=== PATIENT | female | born 1985 | race Hispanic/Latino ===

== ENCOUNTER 2019-09-18 09:37 | Emergency (ER) | payer OTHER ==
[2019-09-18] MEDS ORDERED: NA CHLORIDE 0.9% 1,000 ML ONE (09:59)
[2019-09-18 10:29] LABS: Absolute Lymphocytes (CBC) 1.9 K/uL (0.7-4.9); Basophils % 0.7 % (0-1.3); Hematocrit 27.6 % (36.0-45.0); Lymphocytes % 18.7 % (15.3-44.8); RBC Red Blood Cell Count 4.44 M/uL (3.86-4.86)
[2019-09-18] MEDS ORDERED: ONDANSETRON 4 MG/2 ML VIAL ONE (10:33)
[2019-09-18 10:47] LABS: ALT/SGPT 17 U/L (12-78); AST/SGOT 11 U/L (15-37); Albumin 3.4 g/dL (3.4-5.0); Alkaline Phosphatase 91 U/L (45-117); BUN Blood Urea Nitrogen 12 mg/dL (7-18); Bicarbonate 26 mmol/L (21-32); Bilirubin Direct < 0.1 mg/dL (0-0.2); Bilirubin Total 0.2 mg/dL (0.2-1.0); Glucose Level 91 mg/dL (74-106); Potassium 3.6 mmol/L (3.5-5.1); Protein, Total 7.1 g/dL (6.4-8.2); Sodium Level 141 mmol/L (136-145); Troponin (Emerg Dept Use Only) < 0.02 ng/mL (0.0-0.045)
[2019-09-18 10:47] LABS: Urine Blood NEGATIVE (NEG); Urine Glucose NEGATIVE (NEG); Urine Protein NEGATIVE (NEG)
--- NOTE | 2019-09-18 11:25 | RAD REPORT ---
EXAM DESCRIPTION: RAD - Chest Single View - 09/18/2019 10:21 am CLINICAL HISTORY: Chest pain;Cough Chest pain. COMPARISON: No comparisons FINDINGS: Portable technique limits examination quality. The lungs are grossly clear. The heart is normal in size. No displaced fractures. IMPRESSION: No acute intrathoracic process suspected.
--- NOTE | 2019-09-18 13:27 | ER ---
Nurse's Notes [facility] Name: Georgia Sheridan Age: 34 yrs Sex: Female : 1985 Arrival Date: 09/18/2019 Time: 09:40 Bed 19 Private MD: Diagnosis: Acute upper respiratory infection, unspecified;Vomiting;Chest pain, unspecified;Anemia, unspecified Presentation: 09/17 09:40 Chief complaint: EMS states: NAUSEA AND VOMITING AT WORK WITH CHEST PAIN. Coronavirus bp screen: Proceed with normal triage. Patient reports a cough. Patient denies shortness of breath or difficulty breathing. Patient denies measured and/or subjective temperature greater than 100.4F prior to today's visit. Ebola Screen: No symptoms or risks identified at this time. Initial Sepsis Screen: Does the patient meet any 2 criteria? No. Patient's initial sepsis screen is negative. Does the patient have a suspected source of infection? No. Patient's initial sepsis screen is negative. Risk Assessment: Do you want to hurt yourself or someone else? Patient reports no desire to harm self or others. Onset of symptoms was September 18, 2019. Care prior to arrival: Medication(s) given: zofran 4 mg, IV initiated. 20 GA, in the right antecubital area. 09:40 Method Of Arrival: EMS: [place] [facility] bp 09:40 Acuity: DENNIS 3 bp Triage Assessment: 09:42 General: Appears in no apparent distress. uncomfortable, obese, Behavior is calm, bp cooperative, appropriate for age. Pain: Complains of pain in chest Quality of pain is described as squeezing. EENT: No deficits noted. Neuro: No deficits noted. Cardiovascular: Rhythm is sinus rhythm. Respiratory: Reports cough that is Airway is patent Respiratory effort is even, unlabored. GI: Reports nausea, vomiting. : No signs and/or symptoms were reported regarding the genitourinary system. Derm: No deficits noted. Musculoskeletal: No deficits noted. Historical: - Allergies: 09:42 No Known Allergies; bp - Home Meds: :42 None [Active]; bp - PMHx: 09:42 None; bp - Immunization history:: Adult Immunizations up to date. - Social history:: Smoking status: Patient denies any tobacco usage or history of. Screenin:43 Abuse screen: Denies threats or abuse. Denies injuries from another. Nutritional bp screening: No deficits noted. Tuberculosis screening: No symptoms or risk factors identified. Fall Risk None identified. Assessment: 09:43 General: SEE TRIAGE NOTE. GI: Abdomen is non-distended, obese. bp 10:54 Reassessment: IVF INFUSING. RESULTS PENDING ON ORDERS. bp 11:55 Reassessment: IVF COMPLETED, ALL INITIAL ORDERS RESULTED. DISPO PENDING. bp 13:52 Reassessment: PT D/C HOME AMBULATORY, DX WITH ACUTE URI. PT ENCOURAGED TO HOME bp QUARANTINE UNTIL NEGATIVE COVID RESULT. Vital Signs: 09:40 BP 105 / 61; Pulse 67; Resp 17; Temp 98.7; Pulse Ox 98% ; bp 09:45 BP 95 / 45; Pulse 66; Resp 17; Temp 98.4; Pulse Ox 100% ; bp 10:54 BP 105 / 61; Pulse 66; Resp 18; Pulse Ox 100% ; bp 11:54 BP 102 / 57; Pulse 66; Resp 18; Pulse Ox 100% ; bp 13:02 BP 104 / 55; Pulse 64; Resp 16; Pulse Ox 100% ; bp 13:52 BP 101 / 58; Pulse 75; Resp 16; Temp 98.5; Pulse Ox 100% ; bp ED Course: 09:40 Patient arrived in ED. bp 09:40 Mati Dueñas NP is PHCP. pm1 09:40 Orion Bhakta MD is Attending Physician. pm1 09:41 Triage completed. bp 09:42 Arm band placed on. bp 09:43 Patient has correct armband on for positive identification. Bed in low position. Call bp light in reach. Side rails up X2. 09:43 Maintain EMS IV. Dressing intact. Good blood return noted. Site clean \T\ dry. Gauge \T\ bp site: 20 G RIGHT AC. 10:17 Sushant Vargas, ZULLY is Primary Nurse. bp 10:21 XRAY Chest (1 view) In Process Unspecified. EDMS 11:51 Throat Culture Sent. bp 13:52 No provider procedures requiring assistance completed. IV discontinued, intact, bp bleeding controlled, No redness/swelling at site. Pressure dressing applied. Administered Medications: 10:10 Drug: NS 0.9% 1000 ml Route: IV; Rate: 1000 ml; Site: right forearm; bp 13:54 Follow up: IV Status: Completed infusion; IV Intake: 1000ml bp 10:10 Drug: Zofran (Ondansetron) 4 mg Route: IVP; Site: right forearm; bp 11:51 Follow up: Response: Nausea is decreased bp Intake: 13:54 IV: 1000ml; Total: 1000ml. bp Outcome: 13:26 Discharge ordered by MD. pm1 13:52 Discharged to home ambulatory. bp 13:52 Condition: stable 13:52 Discharge instructions given to patient, Instructed on discharge instructions, follow up and referral plans. medication usage, Demonstrated understanding of instructions, follow-up care, medications, Prescriptions given X 2. 14:03 Patient left the ED. bp Addendum: 09/20/2019 13:08 Addendum: Other pt notified of negative COVID-19 swab results. Pt advised to remain in d m5 isolation until symptom free for at least 3 says without medication and to return to the ED for worsening symptoms. Signatures: Dispatcher [employer] EDMS Holli Alexander, RN RN dm5 Mati Dueñas, [employer] pm1 Sushant Vargas, RN RN bp
--- NOTE | 2019-09-18 13:27 | EDPHYS ---
Physician Documentation [facility] Name: Georgia Sheridan Age: 34 yrs Sex: Female : 1985 Arrival Date: 09/18/2019 Time: 09:40 Bed 19 Private MD: ED Physician Orion Bhakta HPI: 09/17 09:53 This 34 yrs old Female presents to ER via EMS with complaints of pm1 Nausea/Vomiting, Chest Pain. 09:53 The patient presents to the emergency department with nausea, vomiting, 3 times since pm1 the onset of symptoms. Onset: The symptoms/episode began/occurred last night. Possible causes: unknown. The symptoms are aggravated by nothing. The symptoms are alleviated by nothing. Associated signs and symptoms: Pertinent positives: Chest pain with vomiting, Pertinent negatives: abdominal pain, constipation, fever. Severity of symptoms: in the emergency department the symptoms have improved. The patient has not experienced similar symptoms in the past. The patient has not recently seen a physician. Historical: - Allergies: 09:42 No Known Allergies; bp - Home Meds: 09:42 None [Active]; bp - PMHx: 09:42 None; bp - Immunization history:: Adult Immunizations up to date. - Social history:: Smoking status: Patient denies any tobacco usage or history of. ROS: 09:53 Constitutional: Negative for fever, chills, and weight loss, Respiratory: Negative for pm1 shortness of breath, cough, wheezing, and pleuritic chest pain. 09:53 Back: Negative for injury and pain, : Negative for injury, bleeding, discharge, and swelling, MS/Extremity: Negative for injury and deformity, Skin: Negative for injury, rash, and discoloration, Neuro: Negative for headache, weakness, numbness, tingling, and seizure. 09:53 Cardiovascular: Positive for chest pain, Negative for edema, palpitations. 09:53 Abdomen/GI: Positive for nausea and vomiting, Negative for abdominal pain, diarrhea, constipation. Exam: 09:53 Constitutional: This is a well developed, well nourished patient who is awake, alert, pm1 and in no acute distress. Head/Face: Normocephalic, atraumatic. Neck: Trachea midline, no thyromegaly or masses palpated, and no cervical lymphadenopathy. Supple, full range of motion without nuchal rigidity, or vertebral point tenderness. No Meningismus. Chest/axilla: Normal chest wall appearance and motion. Nontender with no deformity. No lesions are appreciated. Cardiovascular: Regular rate and rhythm with a normal S1 and S2. No gallops, murmurs, or rubs. Normal PMI, no JVD. No pulse deficits. Respiratory: Lungs have equal breath sounds bilaterally, clear to auscultation and percussion. No rales, rhonchi or wheezes noted. No increased work of breathing, no retractions or nasal flaring. Abdomen/GI: Soft, non-tender, with normal bowel sounds. No distension or tympany. No guarding or rebound. No evidence of tenderness throughout. Back: No spinal tenderness. No costovertebral tenderness. Full range of motion. Skin: Warm, dry with normal turgor. Normal color with no rashes, no lesions, and no evidence of cellulitis. MS/ Extremity: Pulses equal, no cyanosis. Neurovascular intact. Full, normal range of motion. 09:53 Neuro: Exam negative for acute changes, Orientation: is normal, Mentation: is normal, Motor: is normal, moves all fours. Vital Signs: 09:40 BP 105 / 61; Pulse 67; Resp 17; Temp 98.7; Pulse Ox 98% ; bp 09:45 BP 95 / 45; Pulse 66; Resp 17; Temp 98.4; Pulse Ox 100% ; bp 10:54 BP 105 / 61; Pulse 66; Resp 18; Pulse Ox 100% ; bp 11:54 BP 102 / 57; Pulse 66; Resp 18; Pulse Ox 100% ; bp 13:02 BP 104 / 55; Pulse 64; Resp 16; Pulse Ox 100% ; bp 13:52 BP 101 / 58; Pulse 75; Resp 16; Temp 98.5; Pulse Ox 100% ; bp MDM: 09:40 Patient medically screened. pm1 13:23 Data reviewed: vital signs. Data interpreted: Pulse oximetry: on room air is 100 %. pm1 Interpretation: normal. 13:24 Counseling: I had a detailed discussion with the patient and/or guardian regarding: the pm1 historical points, exam findings, and any diagnostic results supporting the discharge/admit diagnosis, lab results, radiology results, the need for outpatient follow up, to return to the emergency department if symptoms worsen or persist or if there are any questions or concerns that arise at home. 09/17 09:42 Order name: Basic Metabolic Panel; Complete Time: 11:03 pm09/17 09:42 Order name: CBC with Diff pm1 09/17 09:42 Order name: LFT's; Complete Time: 11:03 pm09/17 09:42 Order name: Troponin (emerg Dept Use Only); Complete Time: 11:03 pm09/17 09:42 Order name: Flu; Complete Time: 11:03 pm09/17 09:42 Order name: Strep; Complete Time: 10:45 pm09/17 09:42 Order name: XRAY Chest (1 view); Complete Time: 11:40 pm09/17 09:42 Order name: EKG; Complete Time: 09:43 pm09/17 09:53 Order name: COVID-19; Complete Time: 11:03 pm09/17 10:28 Order name: Urine Dipstick--Ancillary (enter results); Complete Time: 11:03 eb 09/17 10:28 Order name: Urine --Ancillary (enter results); Complete Time: 11:03 eb 09/17 10:43 Order name: Throat Culture EDIA 09/17 09:42 Order name: Cardiac monitoring; Complete Time: 09:45 pm09/17 09:42 Order name: EKG - Nurse/Tech; Complete Time: 10:18 pm09/17 09:42 Order name: IV Saline Lock; Complete Time: 09:45 pm09/17 09:42 Order name: Labs collected and sent; Complete Time: 10:18 pm09/17 09:42 Order name: Urine Dipstick-Ancillary (obtain specimen); Complete Time: 10:18 pm09/17 09:42 Order name: Urine Test (obtain specimen); Complete Time: 10:18 pm1 Administered Medications: 10:10 Drug: NS 0.9% 1000 ml Route: IV; Rate: 1000 ml; Site: right forearm; bp 13:54 Follow up: IV Status: Completed infusion; IV Intake: 1000ml bp 10:10 Drug: Zofran (Ondansetron) 4 mg Route: IVP; Site: right forearm; bp 11:51 Follow up: Response: Nausea is decreased bp Disposition: 15:03 Co-signature as Attending Physician, Orion Bhakta MD. rn Disposition: 09/18/19 13:26 Discharged to Home. Impression: Acute upper respiratory infection, unspecified, Vomiting, Chest pain, unspecified, Anemia, unspecified. - Condition is Stable. - Discharge Instructions: Anemia, Nonspecific, Nonspecific Chest Pain, Iron-Rich Diet, Upper Respiratory Infection, Adult, Nausea and Vomiting, Adult, [id number]. - Prescriptions for Ferrous Sulfate 325 mg (65 mg Iron) Oral Tablet - take 1 tablet by ORAL route every 8 hours; 90 tablet. Zofran ODT 4 mg Oral tablet,disintegrating - place 1 tablet by TRANSLINGUAL route every 8 hours As needed; 12 tablet. - Medication Reconciliation Form, Thank You Letter, Antibiotic Education, Prescription Opioid Use, Work release form form. - Follow up: Emergency Department; When: As needed; Reason: Worsening of condition. Follow up: Private Physician; When: 2 - 3 days; Reason: Recheck today's complaints, Continuance of care, Re-evaluation by your physician. - Problem is new. - Symptoms have improved. Signatures: Dispatcher [employer] EDMS Orion Bhakta MD MD rn Mati Dueñas, [employer] pm1 Sushant Vargas, RN RN bp Corrections: (The following items were deleted from the chart) 13:26 13:26 09/18/2019 13:26 Discharged to Home. Impression: Acute upper respiratory pm1 infection, unspecified; Vomiting; Chest pain, unspecified. Condition is Stable. Forms are Medication Reconciliation Form, Thank You Letter, Antibiotic Education, Prescription Opioid Use. Follow up: Emergency Department; When: As needed; Reason: Worsening of condition. Follow up: Private Physician; When: 2 - 3 days; Reason: Recheck today's complaints, Continuance of care, Re-evaluation by your physician. Problem is new. Symptoms have improved. pm1 14:03 13:26 09/18/2019 13:26 Discharged to Home. Impression: Acute upper respiratory bp infection, unspecified; Vomiting; Chest pain, unspecified; Anemia, unspecified. Condition is Stable. Forms are Medication Reconciliation Form, Thank You Letter, Antibiotic Education, Prescription Opioid Use. Follow up: Emergency Department; When: As needed; Reason: Worsening of condition. Follow up: Private Physician; When: 2 - 3 days; Reason: Recheck today's complaints, Continuance of care, Re-evaluation by your physician. Problem is new. Symptoms have improved. pm1
[2019-09-18 14:22] VITALS: O2SAT 100
[2019-09-18 14:28] VITALS: BP 101/58; TEMP 98.5
[2019-09-18 16:14] LABS: Blood Morphology Comment NOTED (NOT SEEN); Hypochromasia 2+; Platelet Estimate INCR; Urine White Blood Cell Casts OK
== END 2019-09-18 14:03 | disposition home or self-care (01) ==
LOC: ER 09:37
DX: J06.9 Acute upper respiratory infection, unspecified (principal); Z20.828 Contact with and (suspected) exposure to other viral communicable diseases; R07.9 Chest pain, unspecified; D64.9 Anemia, unspecified
CPT/HCPCS: 96361; 93005; 87070; 85025; 80048; 36415; 81025; 80076; 87081; 81003; 84484; 87804 ×2; 71045; 96374; 99284; U0002; J7030; J2405